=== PATIENT | male | born 1975 | race Caucasian/White ===

== ENCOUNTER 2020-07-27 22:24 | Emergency (ER) | payer OTHER ==
[~2020-07-27] VITALS: Ht 180.3 cm; Wt 88.5 kg
--- OUTSIDE RECORDS SUMMARY | ~2020-07-27 | XMS | Encounter Summary ---
Demographics + + + | Address | [facility] | | | [place] [address] | + + + | Home Phone | | + + + | Preferred Language | Unknown | + + + | Marital Status | Unknown | + + + | Religion Affiliation | 1013 | + + + | Race | White | + + + | Ethnic Group | Unknown | + + + Author + + + | Author | [facility] | | | and [place] | + + + | Organization | [facility] | | | and [place] | + + + | Address | Unknown | + + + | Phone | Unavailable | + + + Support + + + + + | Name | Relationship | Address | Phone | + + + + + | [facility] | [address] | | [place], | | | | | [place] [address] | | + + + + + | [facility] | ECON | [address] | | [place], | | | | | [place] [address] | | + + + + + | Amina Espino | ECON | [address] | | | | | [place] , [place] | | + + + + + Care Team Providers + +------+ + | Care Slimer Name | Role | Phone | + +------+ + | Bruce Mccray MD | PCP | | + +------+ + Encounter Details +--------+ + + + + | Date | Type | Department | Care Team | Description | +--------+ + + + + | 09/15/ | Hospital | [facility] | Kelvin Horton MD | | | 2011 | Encounter | [facility] | [address] | | | | | [place] [address] | [place] [address] | | | | | LAZAR[place] Siddiqi | [phone] | | | | | [address] | | | | | | [phone] | | | +--------+ + + + + Social History + +-------+ +--------+------+ | Tobacco Use | Types | Packs/Day | Years | Date | | | | | Used | | + +-------+ +--------+------+ | Never Assessed | | | | | + +-------+ +--------+------+ + + + | Sex Assigned at | Date Recorded | | | | + + + | Not on file | | + + + documented as of this encounter Medications at Time of Discharge + + + +---------+--------+ + | Medication | Sig | Dispensed | Refills | Start | End Date | | | | | | Date | | + + + +---------+--------+ + | meloxicam (MOBIC) | Take 7.5 mg by mouth | | 0 | | | | 7.5 mg tablet | Twice daily as | | | | | | | needed. | | | | | + + + +---------+--------+ + documented as of this encounter Plan of Treatment Not on filedocumented as of this encounter Visit Diagnoses Not on filedocumented in this encounter"
--- OUTSIDE RECORDS SUMMARY | ~2020-07-27 | XMS | Encounter Summary ---
Demographics + + + | Address | [facility] | | | [place] [address] | + + + | Home Phone | | + + + | Preferred Language | Unknown | + + + | Marital Status | Unknown | + + + | Voodoo Affiliation | 1013 | + + + | Race | White | + + + | Ethnic Group | Unknown | + + + Author + + + | Author | [facility] | | | and [place] | + + + | Organization | [facility] | | | [...] [place], | | | | | [place] [address] | | + + + + + | [facility] | ECON | [address] | | [place], | | | | | [place] [address] | | + + + + + | Amina Espino | ECON | [address] | | | | | [place] , [place] | | + + + + + Care Team Providers + +------+ + | Care Tax Audit Manager Name | Role | Phone | + +------+ + | Bruce Mccray MD | PCP | | + +------+ + Reason for Visit + + + | Reason | Comments | + + + | Shoulder Pain | | + + + Encounter Details +--------+---------+ + + + | Date | Type | Department | Care Team | Description | +--------+---------+ + + + | 09/15/ | Office | [facility] | Kelvin Horton MD | Arthropathy of | | 2011 | Visit | NEUROSURGERY [address] | [address] | shoulder region | | | | [address] | [place] [address] | (Primary Dx); | | | | [place] | [phone] | Cervical disc | | | | [address] | | herniation | | | | [phone] | | | +--------+---------+ + + + Social History + +-------+ +--------+ + | Tobacco Use | Types | Packs/Day | Years | Date | | | | | Used | | + +-------+ +--------+ + | Former Smoker | | 1 | | Quit: 11/02/2000 | + +-------+ +--------+ + + + +---------+ + | Alcohol Use | Drinks/Week | oz/Week | Comments | + + +---------+ + | No | | | | + + +---------+ + + + + | Sex Assigned at | Date Recorded | | | | + + + | Not on file | | + + + documented as of this encounter Patient Instructions Patient Instructions Kelvin Horton MD - 09/15/2012 9:06 AM PSTI recommend you have imaging and care directed at your left shoulder before considering neck surgery. If normal shoulder workup, I would recommend nerve testing of your left arm. Electronicall y signed by Kelvin Horton MD at 09/15/2012 9:07 AM PST documented in this encounter Progress Notes Kelvin Horton MD - 09/15/2012 9:07 AM PSTFormatting of this note might be different from t he original. Kelvin Horton MD [address] [place] [address], [address] [place] [id number] FAX: NEUROSURGERY HISTORY AND PHYSICAL EXAMINATION CHIEF COMPLAINT: Chief Complaint Patient presents with Shoulder Pain HISTORY OF PRESENT ILLNESS: The patient is a 37 y.o. male with the complaint of left shoul tien pain that began 8 years ago. The patient states that the symptoms began after playing s [employer] and it hurt mostly focally in the left shoulder. He denied having any neck pain at that time. He has minimal to no neck pain on a daily basis but his shoulder bothers him con stantly. The patient rates his pain as severe. Since the symptoms began, he has noticed th at symptoms have been worsening. He describes the pain as a sharp feeling and occasionally has some vague arm tingling and numbness when he moves his shoulder. Any movement of the sh oulder worsens his symptoms and he has noticed weakness of his arm due to disuse. Rest and NSAIDS slightly improve his condition. His hand coordination is fine and he reports no numb ness or pain in his fingers. PAST MEDICAL HISTORY: Past Medical History Diagnosis Date Shoulder injury Left Neck injury History of gastroesophageal reflux (GERD) 09/15/2012 PAST SURGICAL HISTORY: No past surgical history on file. CURRENT MEDICATIONS: Current Outpatient Prescriptions on File Prior to Visit Medication Sig Dispense Refill meloxicam (MOBIC) 7.5 mg tablet Take 7.5 mg by mouth Twice daily as needed. ALLERGIES: Allergies no known allergies SOCIAL HISTORY: The patient reports that he quit smoking about 11 years ago. He does not have any smokeles s tobacco history on file. He reports that he does not drink alcohol or use illicit drugs. FAMILY HISTORY: No family history on file. REVIEW OF SYSTEMS: GENERALLY: No fever, no night sweats, no anemia, no fatigue, no recent profound weight ch anges. EYES: No eye problems, + use of corrective lenses, no eye injury, no double vision, no bli ndness. EARS, NOSE, AND THROAT: No changes in taste or smell, no hearing difficulty, no ringing in the ears, no ear drainage, no dizziness, no voice changes, no difficulty swallowing, no sig nificant snoring, no sleep apnea, no sinus problems, no major dental work. NEUROLOGICALLY: Please see the review of systems discussed above in the history of present illness. PSYCHIATRIC: No depression, no sleep disorders, no anxiety, no bipolar disorder, no psycho tic episodes. CARDIOVASCULAR: No heart attacks, no heart murmur, no heart fluttering, no chest pain, no ankle swelling. LUNG DISEASE: No shortness of breath, no cough, no tuberculosis, no bloody cough, no asth ma, no emphysema/COPD. GASTROINTESTINAL: No bowel disease, no nausea or vomiting, no rectal bleeding, no constipa tion, no stool incontinence, no liver disease, no gallbladder disease, no abdominal pain, no ulcers. KIDNEY DISEASE: No urinary frequency, no painful or difficult urination, no incontinence. ENDOCRINE: No diabetes, no thyroid disease, no osteopenia or osteoporosis, no breast drain age. SKIN: No breast lumps, no skin changes, no rashes, no itches. HEMATOLOGIC/LYMPHATIC: No enlarged lymph nodes, no easy or unusual bleeding, no personal h istory of cancer. RHEUMATOLOGIC: No joint arthritis, no rheumatoid arthritis. PHYSICAL EXAMINATION: GENERAL: Jeramy Barry is in no acute distress with unlabored respirations. The patient does not appear uncomfortable throughout the exam today. HEENT: HEAD/FACE: EYES: EARS: NASOPHARNYX: OROPHARNYX: Normocephalic and atraumatic. There are no areas of recent trauma. Normal sclerae without icterus. No drainage or tenderness. Clear without drainage. Clear without erythema. NECK (ANTERIOR): Supple and without palpable masses. CHEST: Clear to ausculation without crackles or wheeze. HEART: Regular rate and rhythm without murmurs or gallops. ABDOMEN: Soft, non-tender, non-distended, and without palpable masses. The patient is not obese. SPINE: The cervical spine exam shows there is no tenderness over the C-2, C-3, C-4, C-5, C- 6 and C-7 region. Range of motion is not limited. Rotation and extension does not cause sy mptoms to radiate into the extremities on either side. Flexion and extension of the neck d oes not cause severe discomfort. No tenderness in the midline of the thoracic or lumbar spine. There is no major palpable d eformity of the spine. EXTREMITIES: No cyanosis, clubbing, or edema. Distal pulses are palpable. His left should er has pain with active and passive ROM. There is pain to palpation of the shoulder in the mid deltoid region. NEUROLOGICAL EXAM: MENTAL STATUS: The patient is awake, alert, and oriented. He follows simple and complex commands. He speech is fluent, his comprehends speech well, and his repeats well. He has no apparent deficits with short or retirement memory. CRANIAL NERVES: II: Acuity is intact. Ramirez are full to confrontation. III, IV, : The pupils are reactive. Extraocular movements are intact. No ptosis is note d. V: Facial sensation is intact and symmetric. VII: Facial movements are symmetric. VIII: Hearing is intact bilaterally. IX, X: The uvula and palate move appropriately. XI: Shrug is equal bilaterally. XII: Tongue protrusion is midline. MOTOR EXAM: (5 IS NORMAL) * Indicates pain limited MUSCLE/ MOVEMENT: RIGHT LEFT Deltoids 5 4* Biceps 5 4* Triceps 5 5 Wrist Flexion 5 4+ Wrist Extension 5 4+ Median Intrinsics 5 5 Ulnar Intrinsics 5 5 Inspector Insulation Strength 5 5 Hip Flexion 5 5 Hip Extension 5 5 Knee Flexion 5 5 Knee Extension 5 5 Dorsiflexion 5 5 Extensor Hallicus Longus 5 5 Plantarflexion 5 5 SENSORY EXAM: Sensory exam shows no diminished sensation to light touch or pain throughout the upper and lower extremities. REFLEXES: (2 OR 2+ IS NORMAL) REFLEX: RIGHT LEFT BICEPS 2 2 BRACHIORADIALIS 2 2 TRICEPS 2 2 PATELLAR 2 2 ACHILLES 2 2 PITTMAN'S ABSENT ABSENT PLANTAR DOWNGOING DOWNGOING RADIOGRAPHIC REVIEW: The patient's images were reviewed in detail today explaining the findings in full. The sydney pena's neck MRI shows cervical spondylosis at C6-7 with a cervical disc hernation at that l evel. It does cause spinal stenosis and bilateral neuroforaminal narrowing. His remaining levels are within normal limits. X-rays show spondylosis at C6-7 but no instability. ASSESSMENT: NEUROSURGICAL DIAGNOSES: Encounter Diagnoses Name Primary? Arthropathy of shoulder region Yes Cervical disc herniation GENERAL DIAGNOSES: Past Medical History Diagnosis Date Shoulder injury Left Neck injury History of gastroesophageal reflux (GERD) 09/15/2012 JOSHUA: Jeramy Barry presented today, and it was a pleasure seeing this patient and assessing h is problems. The patient has symptoms of left shoulder pain that I believe are related to l ikely underlying shoulder problems. His symptoms don't particularly sound radicular and don 't fit with a C7 distribution. He has no symptoms of myelopathy and no evidence of that on his exam. While he does have this abnormality at C6-7, I think that it is likely his should er is causing most of his symptoms. I discussed my recommendations for his treatment. I re commended that he seek evaluation and care for his shoulder with the focus on finding potent ial issues with the shoulder joint itself. He may need to see an orthopedic surgeon kash monroy his shoulder if abnormalities are found on imaging. If there is no evidence of shoulder problems, I would recommend further evaluation of his arm with an EMG/nerve conduction testi eliana. I spent 45 minutes in visit with Jeramy Barry today with the majority of time spent cou nselling the patient on his diagnosis, discussing options for his care, and coordinating his care. ELECTRONICALLY SIGNED BY: Kelvin Horton MD, 09/15/2012 9:07 documented in this encounter Plan of Treatment Not on filedocumented as of this encounter Visit Diagnoses + + | Diagnosis | + + | Arthropathy of shoulder region - Primary Unspecified arthropathy, shoulder region | + + | Cervical disc herniation Displacement of cervical intervertebral disc without | | myelopathy | + + documented in this encounter"
--- OUTSIDE RECORDS SUMMARY | ~2020-07-27 | XMS | Encounter Summary ---
Demographics + + + | Address | [facility] | | | [place] [address] | + + + | Home Phone | | + + + | Preferred Language | Unknown | + + + | Marital Status | Unknown | + + + | Sikh Affiliation | 1013 | + + + | Race | White | + + + | Ethnic Group | Unknown | + + + Author + + + | Author | [facility] | | | and [place] | + + + | Organization | [facility] | | | [...] [place], | | | | | [place] [address] | | + + + + + | [facility] | ECON | [address] | | [place], | | | | | [place] [address] | | + + + + + | Amina Espino | ECON | [address] | | | | | [place] , [place] | | + + + + + Care Team Providers + +------+ + | Care Electrolog Operator Name | Role | Phone | + +------+ + | Bruce Mccray MD | PCP | | + +------+ + Encounter Details +--------+ + + + + | Date | Type | Department | Care Team | Description | +--------+ + + + + | 08/19/ | Orders Only | [facility] | Kelvin Horton MD | Shoulder weakness; | | 2011 | | NEUROSURGERY [address] | Left arm weakness | | | | [address] | [place] [address] | | | | | [place]ZAR[place] Siddiqi | [phone] | | | | | [address] | | | | | | [phone] | | | +--------+ + + + [...] + + documented as of this encounter Plan of Treatment + +---------+--------+ + + | Name | Type | Priori | Associated Diagnoses | Order Schedule | | | | ty | | | + +---------+--------+ + + | XR Cervical Spine 4 | Imaging | Routin | Shoulder weakness | Expected: | | + Vw | | e | Left arm weakness | 08/19/2012, Expires: | | | | | | 08/19/2013 | + +---------+--------+ + + documented as of this encounter Visit Diagnoses + + | Diagnosis | + + | Shoulder weakness Other joint derangement, not elsewhere classified, shoulder region | + + | Left arm weakness Other musculoskeletal symptoms referable to limbs | + + documented in this encounter"
--- OUTSIDE RECORDS SUMMARY | ~2020-07-27 | XMS | Clinical Summary ---
Demographics + + + | Address | [facility] | | | [place] [address] | + + + | Home Phone | | + + + | Preferred Language | Unknown | + + + | Marital Status | Unknown | + + + | Restorationist Affiliation | 1013 | + + + | Race | White | + + + | Ethnic Group | Unknown | + + + Author + + + | Author | [facility] | | | and [place] | + + + | Organization | [facility] | | | [...] [place], | | | | | [place] [address] | | + + + + + | [facility] | ECON | [address] | | [place], | | | | | [place] [address] | | + + + + + | Amina Espino | ECON | [address] | | | | | [place] , [place] | | + + + + + Care Team Providers + +------+ + | Care Schedule Maker Name | Role | Phone | + +------+ + | Bruce Mccray MD | PCP | | + +------+ + Allergies No Known Allergies Medications + + + +---------+------+------+-------+ | Medication | Sig | Dispensed | Refills | Star | End | Statu | | | | | | t | Date | s | | | | | | Date | | | + + + +---------+------+------+-------+ | meloxicam (MOBIC) | Take 7.5 mg by mouth | | 0 | | | Activ | | 7.5 mg tablet | Twice daily as | | | | | e | | | needed. | | | | | | + + + +---------+------+------+-------+ Active Problems + + + | Problem | Noted Date | + + + | History of gastroesophageal reflux (GERD) | 09/15/2012 | + + + | Shoulder injury | | + + + | Neck injury | | + + + Social History + +-------+ [...] on file | | + + + Last Filed Vital Signs Not on file Plan of Treatment + + +-------+ + | Health Maintenance | Due Date | Last | Comments | | | | Done | | + + +-------+ + | Vaccine: | | | | | Dtap/Tdap/Td (1 - | 4 | | | | Tdap) | | | | + + +-------+ + | Vaccine: Influenza | | | | | (#1) | 0 | | | + + +-------+ + Results Not on filefrom Last 3 Months Insurance + +--------+ +--------+-------+---------+--------+ | Payer | Benefi | Subscriber | Effect | Phone | Address | Type | | | t Plan | ID | kusum | | | | | | / | | Dates | | | | | | Group | | | | | | + +--------+ +--------+-------+---------+--------+ | COMMERCIAL [employer]IC | THIRD | [id number] | | | | Indemn | | | [employer] | | 012-Pr | | | ity | | | LIABIL | | esent | | | | | | ITY | | | | | | | | OTHER | | | | | | + +--------+ +--------+-------+---------+--------+ + +--------+ +--------+ + + | Guarantor Name | Accoun | Relation to | Date | Phone | Billing Address | | | t Type | Patient | of | | | | | | | | | | + +--------+ +--------+ + + | Jeramy Barry | Corpor | Self | [birth year] | | [facility] | | | ate | | 1974 | | [facility] | | | | | | 0 (Home) | INSTITUTION | | | | | | | [place] [address] | | | | | | 0 (Work) | | + +--------+ +--------+ + + | Jeramy Barry | Person | Self | [birth year] | | [facility] | | | al/Fam | | 1974 | [phone] | [facility] | | | shayne | | | 0 (Home) | INSTITUTION | | | | | | | [place] [address] | + +--------+ +--------+ + + Advance Directives + + + + + | Type | Date Recorded | Patient | Explanation | | | | Physician Assistant Surgery | | + + + + + | Power of | | | | | [employer] | | | | + + + + +"
--- OUTSIDE RECORDS SUMMARY | ~2020-07-27 | XMS | Encounter Summary ---
Demographics + + + | Address | [facility] | | | [place] [address] | + + + | Home Phone | | + + + | Preferred Language | Unknown | + + + | Marital Status | Unknown | + + + | Latter Day Affiliation | 1013 | + + + | Race | White | + + + | Ethnic Group | Unknown | + + + Author + + + | Author | [facility] | | | and [place] | + + + | Organization | [facility] | | | [...] [place], | | | | | [place] [address] | | + + + + + | [facility] | ECON | [address] | | [place], | | | | | [place] [address] | | + + + + + | [facility] Esp[facility] | ECON | [address] | | | | | [place] , [place] | | + + + + + Care Team Providers + +------+ + | Care Director Cost Name | Role | Phone | + +------+ + | Bruce Mccray MD | PCP | | + +------+ + Encounter Details +--------+ + + + + | Date | Type | Department | Care Team | Description | +--------+ + + + + | 08/26/ | Abstract | [facility] | Kelvin Horton MD | | | 2011 | | NEUROSURGERY [address] | | | | | [address] | [place] [address] | | | | | LAZARUS Siddiqi | [phone] | | | | | [address] | | | | | | [phone] | | | +--------+ + + + [...]
[~2020-07-27 22:24] MED LIST: NORCO 5-325 TA1 EACH PO
== END 2020-07-28 00:47 | disposition home or self-care (01) ==
LOC: ED 22:24
DX: J18.9 Pneumonia, unspecified organism (principal); Z20.828 Contact with and (suspected) exposure to other viral communicable diseases; Z87.891 Personal history of nicotine dependence
CPT/HCPCS: 71045; 80053; 83605; 83880; 85025; 85610; 85730; 99284